=== PATIENT | female | born 1995 | race American Indian/Alaskan Native ===

== ENCOUNTER 2017-08-14 15:21 | Emergency (ER) | payer BC ==
[2017-08-14 15:26] VITALS: BMI 18.8
[2017-08-14 15:28] VITALS: BP 104/66; PULSE 78; RESP 16; TEMP 98.9; O2SAT 98
--- NOTE | 2017-08-14 15:40 | C.PDOC ---
History Of Present Illness 22 year old female who is 12 weeks presents to the ED for evaluation of a rash for the past 3 days. Patient reports her rash started on her arms and then spread to her chest and abdomen. Patient states her rash is mostly itchy but not painful. Patient denies fever, chills, lip swelling, tongue swelling, SOB. Time Seen by Provider: 08/14/17 15:33 Chief Complaint (Nursing): Abnormal Skin Integrity History Per: Patient History/Exam Limitations: no limitations Onset/Duration Of Symptoms: Days (3) Current Symptoms Are (Timing): Still Present Location Of Injury: Right: Forearm, Left: Forearm, Anterior: Abdomen, Chest Quality Of Symptoms: Itching Recent travel outside of the [place]: No Additional History Per: Patient Past Medical History Reviewed: Historical Data, Nursing Documentation, Vital Signs Vital Signs: Last Vital Signs Temp 98.9 F 08/14/17 15:26 Pulse 78 08/14/17 15:26 Resp 16 08/14/17 15:26 BP 104/66 08/14/17 15:26 Pulse Ox 98 08/14/17 15:52 - Medical History PMH: No Chronic Diseases Surgical History: No Surg Hx Family History: States: Unknown Family Hx - Social History Hx Alcohol Use: No Hx Substance Use: No - Immunization History Hx Tetanus Toxoid Vaccination: No Hx Influenza Vaccination: No Hx Pneumococcal Vaccination: No Review Of Systems Constitutional: Negative for: Fever, Chills ENT: Negative for: Mouth Swelling, Throat Swelling Respiratory: Negative for: Shortness of Breath Gastrointestinal: Negative for: Nausea, Vomiting Skin: Positive for: Rash Neurological: Negative for: Weakness, Numbness Physical Exam - Physical Exam Appears: Non-toxic, No Acute Distress Skin: Warm, Dry, Rash (fine papular rash to bilateral forearms, torso, and abdomen, no vesicles, no weeping.) Head: Atraumatic, Normacephalic Eye(s): bilateral: Normal Inspection Ear(s): Bilateral: Normal Oral Mucosa: Moist Tongue: No Swelling Lips: No Swelling Throat: Normal, No Erythema, No Exudate Chest: Symmetrical Respiratory: Normal Breath Sounds, No Rales, No Rhonchi, No Wheezing Extremity: Normal ROM, No Tenderness, No Swelling Neurological/Psych: Oriented x3, Normal Speech Gait: Steady ED Course And Treatment O2 Sat by Pulse Oximetry: 98 (ON RA) Pulse Ox Interpretation: Normal Medical Decision Making Medical Decision Making: Impression: rash does not appear to be urticaria, cellulitis, vesicles, or fungal Recommend benadryl for itching Disposition Counseled Patient/Family Regarding: Diagnosis, Need For Followup, Rx Given - Disposition Referrals: [facility] [Outside] [facility] [Outside] Disposition: HOME/ ROUTINE Disposition Time: 15:38 Condition: GOOD Additional Instructions: Take Benadryl as needed for itching 1-2 pills every 4-6 hours apply cream to affected areas Follow up in the clinic Prescriptions: DiphenhydrAMINE [Benadryl] 25 mg PO Q4 PRN #30 cap PRN Reason: Rash Hydrocortisone [Cortisone] 28 gm TP DAILY #1 cream..g. Instructions: Skin Rash (DC) Forms: [employer]cale (Albanian) - POA Present On Arrival: None - Clinical Impression Clinical Impression: Dermatitis - PA / [employer] / Resident Statement MD/DO has reviewed & agrees with the documentation as recorded. - Scribe Statement The provider has reviewed the documentation as recorded by the Scribe Barrie Garcia All medical record entries made by the Scribjayne were at my direction and personally dictated by me. I have reviewed the chart and agree that the record accurately reflects my personal performance of the history, physical exam, medical decision making, and the department course for this patient. I have also personally directed, reviewed, and agree with the discharge instructions and disposition.
== END 2017-08-14 15:59 | disposition home or self-care (01) ==
LOC: C.ER 15:21
DX: O26.891 Other specified pregnancy related conditions, first trimester (principal); L30.9 Dermatitis, unspecified; Z3A.12 12 weeks gestation of pregnancy